=== PATIENT | male | born 1990 | race African-American/Black ===

== ENCOUNTER 2019-01-02 14:43 | Emergency (ER) | payer MEDICAID, SELFPAY ==
[2019-01-02 14:51] VITALS: BP 127/78; PULSE 77; RESP 12; TEMP 37.2; O2SAT 98
--- NOTE | 2019-01-02 14:53 | ED.GENADUL_ITS ---
Discharge Plan Discharge Details Chief Complaint: RashLesion Primary Care Provider: None,None ED Provider: Ginny Terry General Date/Time Provider Initiated Documentation: 01/02/19 14:46 . Stated Complaint: RashLesion JARRED: 5 Course Vital Signs Temperature 99.0 F 01/02/19 14:51 Pulse 77 01/02/19 14:51 Respiratory Rate 12 01/02/19 14:51 Blood Pressure 127/78 01/02/19 14:51 Pulse Oximetry 98 01/02/19 14:51 Temperature 99.0 F 01/02/19 14:51 Temperature Source Temporal Artery Scan 01/02/19 14:51 Pulse 77 01/02/19 14:51 Respiratory Rate 12 01/02/19 14:51 Blood Pressure 127/78 01/02/19 14:51 Blood Pressure Position Sitting 01/02/19 14:51 Pulse Oximetry 98 01/02/19 14:51 Oxygen Delivery Method Room Air 01/02/19 14:51 Oxygen Flow Rate 0 01/02/19 14:51 Pain Level 0 01/02/19 14:51
--- NOTE | 2019-01-02 15:50 | W.ED.GENAD ---
Discharge Plan Disposition Patient Disposition: HOME Condition: Good Discharge Details Chief Complaint: RashLesion Clinical Impression: Blister Primary Care Provider: None,None ED Provider: Johana Garcia Home Meds and New Rx's Prescriptions: No Action No Known Home Meds RF: 0 Discharge Instructions Instructions: Blister (ED) Additional Instructions: Keep area clean, dry, covered. Wear a Band-Aid when wearing your work shoes as it will likely continue to rub. Monitor for signs of infection including redness, warmth, drainage, increased pain, fever/chills. If you develop these or other new/worsening symptoms please seek care urgently once again. Otherwise, please follow-up with primary care if not improving over the next 2-week Medical Decision Making Patient presents today for evaluation of open area of skin. Findings and history most concerning for a blister. Advised that this is likely from his foot rubbing for extended periods of time his work shoes. He will cover with a Band-Aid to help prevent further irritation to this area. We did discuss changing his shoes. We discussed the signs symptoms of infection when to seek care urgently once again. All his questions and concerns were addressed and he is in agreement this plan. HPI General Mode of arrival: ambulatory. Date/Time Provider Initiated Documentation: 01/02/19 14:46. Limitations to Documentation: no limitations. Information obtained by: patient and family (accompanied by significant other). HPI Narrative: Patient is a 28-year-old male presenting today, accompanied by significant other, with chief complaint of open area to the medial aspect of the dorsal side of the left foot. He reports that he first noticed this 2 days ago. This was after a long shift at work where he is ambulating frequently. States that when he first noticed it, the area was very pale than superficial layer of skin layer sloughed off. Since that time, he has noted an open circular area of skin. States that when this rubs against his shoes he can note blood on his socks. Denies any fevers or chills. No known trauma. Denies any pain. No other rash or break in the skin noted Related Data Home Medications Medication Instructions Recorded Confirmed Unknown [No Known Home Meds] 01/02/19 01/02/19 Allergies Allergy/AdvReac Type Severity Reaction Status Date / Time No Known Allergies Allergy Unverified 01/02/19 14:54 General Stated Complaint: RashLesion JARRED: 5 Review of Systems Constitutional Reports as per HPI, Denies chills and Denies fever(s) Musculoskeletal Reports as per HPI Integumentary/Breasts Reports as per HPI Neurologic Reports as per HPI, Denies sensory deficit and Denies paresthesias [facility] Social History Smoking/Tobacco Use Status: Current every day Tobacco Type: cigarettes Alcohol Intake: current Alcohol Intake frequency: a few times a month Drug use: Daily Substance use type: former substance user Do you feel safe at home: Yes Do you feel safe in your relationship?: Yes Exam Const General: cooperative, healthy appearing, comfortable, no acute distress and well developed Nutritional Appearance: average body habitus and well nourished Orientation: alert and awake Resp Effort & Inspection: normal respiratory effort, able to speak in complete sentences and no respiratory distress Cardio Rate: regular rate Rhythm: regular rhythm Skin Wounds: wounds noted (Patient has a 8 mm in diameter open area of skin left dorsal foot) Neuro General: alert and awake Cognition: normal cognition Speech: speech normal Gait: normal gait Sensory Exam: no sensory deficits noted Extrem General: abnormal to inspection (Open area of skin as above, exam otherwise normal), full ROM, normal capillary refill, no joint enlargement, no pedal edema and normal gait Psych Appearance: grossly normal and well kempt Mental Status: mental status grossly normal Speech and Movement: speech and movement normal Course Vital Signs Temperature 37.2 C 01/02/19 14:51 Pulse 77 01/02/19 14:51 Respiratory Rate 12 01/02/19 14:51 Blood Pressure 127/78 01/02/19 14:51 Pulse Oximetry 98 01/02/19 14:51 Temperature 37.2 C 01/02/19 14:51 Temperature Source Temporal Artery Scan 01/02/19 14:51 Pulse 77 01/02/19 14:51 Respiratory Rate 12 01/02/19 14:51 Respiratory Effort Non-Labored 01/02/19 14:52 Blood Pressure 127/78 01/02/19 14:51 Blood Pressure Position Sitting 01/02/19 14:51 Pulse Oximetry 98 01/02/19 14:51 Oxygen Delivery Method Room Air 01/02/19 14:51 Oxygen Flow Rate 0 01/02/19 14:51 Pain Level 0 01/02/19 14:51
[2019-01-02 15:53] VITALS: BP 127/78; PULSE 77; RESP 12; O2SAT 98
--- NOTE | 2019-01-02 15:55 | ED.GENADUL_ITS ---
Discharge Plan Disposition Patient Disposition: HOME Condition: Good Discharge Details Chief Complaint: RashLesion Clinical Impression: Blister Primary Care Provider: None,None ED Provider: Johana Garcia Home Meds and New Rx's Prescriptions: No Action No Known Home Meds RF: 0 Discharge Instructions Instructions: Blister (ED) Additional Instructions: Keep area clean, dry, covered. Wear a Band-Aid when wearing your work shoes as it will likely continue to rub. Monitor for signs of infection including redness, warmth, drainage, increased pain, fever/chills. If you develop these or other new/worsening symptoms please seek care urgently once again. Otherwise, please follow-up with primary care if not improving over the next 2- week Medical Decision Making Patient presents today for evaluation of open area of skin. Findings and history most concerning for a blister. Advised that this is likely from his foot rubbing for extended periods of time his work shoes. He will cover with a Band-Aid to help prevent further irritation to this area. We did discuss changing his shoes. We discussed the signs symptoms of infection when to seek care urgently once again. All his questions and concerns were addressed and he is in agreement this plan. HPI General Mode of arrival: ambulatory . Date/Time Provider Initiated Documentation: 01/02/19 14:46 . Limitations to Documentation: no limitations . Information obtained by: patient and family (accompanied by significant other) . HPI Narrative: Patient is a 28-year-old male presenting today, accompanied by significant other, with chief complaint of open area to the medial aspect of the dorsal side of the left foot. He reports that he first noticed this 2 days ago. This was after a long shift at work where he is ambulating frequently. States that when he first noticed it, the area was very pale than superficial layer of skin layer sloughed off. Since that time, he has noted an open circular area of skin. States that when this rubs against his shoes he can note blood on his socks. Denies any fevers or chills. No known trauma. Denies any pain. No other rash or break in the skin noted Related Data Home Medications Medication Instructions Recorded Confirmed Unknown [No Known Home Meds] 01/02/19 01/02/19 Allergies Allergy/AdvReac Type Severity Reaction Status Date / Time No Known Allergies Allergy Unverified 01/02/19 14:54 General Stated Complaint: RashLesion JARRED: 5 Review of Systems Constitutional Reports as per HPI, Denies chills and Denies fever(s) Musculoskeletal Reports as per HPI Integumentary/Breasts Reports as per HPI Neurologic Reports as per HPI, Denies sensory deficit and Denies paresthesias [facility] Social History Smoking/Tobacco Use Status: Current every day Tobacco Type: cigarettes Alcohol Intake: current Alcohol Intake frequency: a few times a month Drug use: Daily Substance use type: former substance user Do you feel safe at home: Yes Do you feel safe in your relationship?: Yes Exam Const General: cooperative, healthy appearing, comfortable, no acute distress and well developed Nutritional Appearance: average body habitus and well nourished Orientation: alert and awake Resp Effort & Inspection: normal respiratory effort, able to speak in complete sentences and no respiratory distress Cardio Rate: regular rate Rhythm: regular rhythm Skin Wounds: wounds noted (Patient has a 8 mm in diameter open area of skin left dorsal foot) Neuro General: alert and awake Cognition: normal cognition Speech: speech normal Gait: normal gait Sensory Exam: no sensory deficits noted Extrem General: abnormal to inspection (Open area of skin as above, exam otherwise normal), full ROM, normal capillary refill, no joint enlargement, no pedal edema and normal gait Psych Appearance: grossly normal and well kempt Mental Status: mental status grossly normal Speech and Movement: speech and movement normal Course Vital Signs Temperature 37.2 C 01/02/19 14:51 Pulse 77 01/02/19 14:51 Respiratory Rate 12 01/02/19 14:51 Blood Pressure 127/78 01/02/19 14:51 Pulse Oximetry 98 01/02/19 14:51 Temperature 37.2 C 01/02/19 14:51 Temperature Source Temporal Artery Scan 01/02/19 14:51 Pulse 77 01/02/19 14:51 Respiratory Rate 12 01/02/19 14:51 Respiratory Effort Non-Labored 01/02/19 14:52 Blood Pressure 127/78 01/02/19 14:51 Blood Pressure Position Sitting 01/02/19 14:51 Pulse Oximetry 98 01/02/19 14:51 Oxygen Delivery Method Room Air 01/02/19 14:51 Oxygen Flow Rate 0 01/02/19 14:51 Pain Level 0 01/02/19 14:51
== END 2019-01-02 15:55 | disposition home or self-care (01) ==
PROVIDERS: Emergency Provider Physician Assistant
DX: S90.822A Blister (nonthermal), left foot, initial encounter (principal); X50.3XXA Overexertion from repetitive movements, initial encounter
CPT/HCPCS: 99281

== ENCOUNTER 2020-10-29 13:01 | Emergency (ER) | payer SELFPAY ==
[2020-10-29 13:11] VITALS: BP 131/81; PULSE 92; RESP 16; TEMP 37.3; O2SAT 99
--- NOTE | 2020-10-29 13:53 | ED.GENADUL_ITS ---
Discharge Plan Disposition Patient Disposition: HOME Condition: Stable Discharge Details Clinical Impression: Streptococcal sore throat Primary Care Provider: None,None ED Provider: Kia Álvarez Home Meds and New Rx's Prescriptions: New cephalexin 500 mg tablet 500 mg PO BID 9 Days Qty: 18 RF: 0 Discharge Instructions Instructions: Strep Throat (ED), Upper Respiratory Infection (ED) Additional Instructions: Follow up with primary care provider in 3-5 days. Return to ED sooner if any worsening or concerns. Increase oral fluids. Take antibiotic as directed twice daily for 10 days. Gargle with warm salt water up to 3 times daily. At this time your Covid test is pending. He will need to quarantine until negative test results and for alleviation of symptoms. Please take Tylenol or Ibuprofen with food every 4-6 hours as needed for pain and swelling. Strep swab positive. Stand Alone Forms: PENDING COVID-19 TESTING Discharge Data Discharge Date/Time-TO BE ENTERED AT DEPARTURE: 10/29/20 14:26 Medical Decision Making 30-year-old male presents the ER chief complaint sore throat, fever for the last 48 hours. He also reports back pain which is chronic. On initial exam he does have 3+ bilateral tonsils, erythematous area and exudate noted. Positive anterior cervical lymphadenopathy. He is speaking in full sentences with a clear voice, no problems handling his saliva. Denies any abdominal pain, nausea vomiting or diarrhea. Denies any problems urinating or burning with urination. At this time strep swab ordered is pending send out Covid swab obtained. Strep rapid swab positive. Patient given dexamethasone here in department and prescribed Keflex 5 mg twice a day. First dose given tonight. This text was generated using [employer] dictation system, please disregard any oddities of phrase or misspellings. HPI General Mode of arrival: ambulatory . Date/Time Provider Initiated Documentation: 10/29/20 13:38 . Limitations to Documentation: no limitations . Information obtained by: patient . HPI Narrative: 30-year-old male presents the ER chief complaint sore throat, fever for the last 48 hours. He also reports back pain which is chronic. On initial exam he does have 3+ bilateral tonsils, erythematous area and exudate noted. Positive anterior cervical lymphadenopathy. He is speaking in full sentences with a clear voice, no problems handling his saliva. Denies any abdominal pain, nausea vomiting or diarrhea. Denies any problems urinating or burning with urination. Related Data Home Medications Medication Instructions Recorded Confirmed cephalexin 500 mg PO BID 9 Days #18 tab 10/29/20 Previous Rx's Medication Instructions Recorded cephalexin 500 mg PO BID 9 Days #18 tab 10/29/20 Allergies Allergy/AdvReac Type Severity Reaction Status Date / Time No Known Allergies Allergy Unverified 10/29/20 13:17 General Stated Complaint: Fever JARRED: 3 Review of Systems Narrative: Constitutional: Negative for weight loss, alert and oriented, well groomed, normal body habitus, appears comfortable. HEENT: Denies trauma, headaches, blurry vision, nasal discharge, positive sore throat trouble swallowing.. Chest: Denies chest pain, palpitations, irregular rhythm, hypertension. Respiratory: Denies Shortness of breath, cough, hemoptysis. GI: Denies abdominal pain, nausea, vomiting, diarrhea, constipation. : Denies dysuria, hematuria, flank pain, rectal bleeding. Neuro: Denies dizziness, blurry vision, weakness, syncope, headache or facial numbness. Hematologic: Denies easy bruising, intolerance to heat or cold, hair loss. [facility] Social History Smoking/Tobacco Use Status: Current every day Tobacco Type: cigarettes Smoking risk assessment performed?: Yes Alcohol Intake: current Alcohol Intake frequency: a few times a month Drug use: Daily Substance use type: former substance user and marijuana Do you feel safe at home: Yes Do you feel safe in your relationship?: Yes Exam Narrative Exam Narrative: Constitutional: Alert and oriented x3. Appears stated age. Normal body habitus. Head: Normocephalic, no trauma. Eyes: Pupils PERRLA, Red reflex noted, EOM's intact. Eyelids symmetrical without lesions, discharge, or swelling. ENT: Bilateral TM's WNL, External ear normal to inspection, no mastoid TTP, swelling, or erythema, Nasal turbinates WNL, no nasal discharge. Normal dentition, Posterior pharynx erythemic, tonsils 2+ bilaterally, positive exudate noted bilaterally. Anterior cervical lymphadenopathy positive. Chest: RRR, Normal S1, S2, distal pulses intact. Resp: Lungs clear to auscultation bilaterally, no wheezes, rales, or rhonchi. Musculoskeletal: Normal gait, 5/5 strength to all four extremities. Skin: No suspicious rashes or lesions. Capillary refill less than 2 sec. Neurologic: Cranial nerves II-XII intact. Alert and oriented x 3. DTR's intact. Hematologic/Lymphatic: No ecchymosis, Course Vital Signs Vital signs: Vital Signs Temperature 37.3 C 10/29/20 13:11 Pulse 92 H 10/29/20 13:11 Respiratory Rate 16 10/29/20 13:11 Blood Pressure 131/81 10/29/20 13:11 Pulse Oximetry 99 10/29/20 13:11 Temperature 37.3 C 10/29/20 13:11 Temperature Source Skin 10/29/20 13:11 Pulse 92 H 10/29/20 13:11 Respiratory Rate 16 10/29/20 13:11 Respiratory Effort 10/29/20 13:18 Blood Pressure 131/81 10/29/20 13:11 Blood Pressure Position Sitting 10/29/20 13:11 Pulse Oximetry 99 10/29/20 13:11 Oxygen Delivery Method Room Air 10/29/20 13:11 Oxygen Flow Rate 0 10/29/20 13:11 Pain Level 8 10/29/20 13:11
[2020-10-29] MEDS: Cephalexin 500 MG CAP PO (14:22)
[2020-10-29] MEDS: Dexamethasone 10 MG/ML VIAL PO (14:22)
[2020-10-29] MEDS: Cephalexin 500 MG CAP, 4 CAPS/BTL PO (14:23)
[2020-10-31 15:41] LABS: COVID-19 RT-PCR UVMMC Result Negative (Negative)
== END 2020-10-29 14:26 | disposition home or self-care (01) ==
PROVIDERS: Emergency Provider Registered Nurse Emergency
DX: J02.0 Streptococcal pharyngitis (principal); M54.5 Low back pain; G89.29 Other chronic pain; Z20.822 Contact with and (suspected) exposure to COVID-19
CPT/HCPCS: 87880; 99283; U0003; J1100

== ENCOUNTER 2021-01-02 12:44 | Emergency (ER) | payer SELFPAY ==
--- NOTE | 2021-01-02 12:45 | RT.EKG_ITS ---
APPROVED REPORT Exam: Resting ECG Reason for Exam: palpitations Patient Location: E HR:78 bpm ECG Measurements Heart Rate 78 AXIS OR 180 P 66 QRSd 80 QRS 44 QT 339 T 24 QTc 388 Conclusion Sinus rhythm...normal P axis, V-rate 60- 99
[2021-01-02 12:49] VITALS: BP 113/76; PULSE 79; RESP 16; TEMP 36.8; O2SAT 100
--- NOTE | 2021-01-02 13:08 | ED.GENADUL_ITS ---
Discharge Plan Disposition Patient Disposition: HOME Condition: Improving Discharge Details Chief Complaint: Palpitatns Clinical Impression: Heart palpitations Primary Care Provider: None,None ED Provider: Norman Duran Discharge Instructions Instructions: Heart Palpitations (ED) Additional Instructions: Return for evaluation of Holter monitor as discussed with respiratory therapy. We will ask our care management team to arrange a outpatient follow-up for you to establish primary care. Home to rest today. Small, frequent sips of fluid so that you maintain good hydration. Return to the ER for any acute concerns. Medical Decision Making Otherwise healthy young man presents with 2 days of intermittent palpitations. Denies any recent illness. He is otherwise been well. Arrives to the ER with normal vital signs and a reassuring exam. Screening EKG, laboratories obtained, chest x-ray obtained. Patient's labs are reassuring. There is note of slight elevated white blood cell count of 11, hematocrit 41, platelets 338. Chemistries unremarkable, troponin normal. Chest x-ra no acute findings. Patient remains stable and improved. Given that he had 2 days of previous symptoms, do not feel repeat troponin is indicated. We will place him on a Holter monitor as an outpatient. We will ask child care supervisor to arrange a follow-up for him to establish primary care. He is stable and appropriate for discharge to home. HPI General Mode of arrival: ambulatory . Date/Time Provider Initiated Documentation: 01/02/21 12:55 . Limitations to Documentation: no limitations . Information obtained by: patient . History of Present Illness 30 year old M presents to the emergency department with the chief complaint of Intermittent palpitations for 2 days, described as mild, Quality is described as dull, and is localized to the chest. Patient reports no radiation. Patient started experiencing this hour(s) and it has been intermittent and now resolved. No relieving factors improve symptom(s), No exacerbating factors reported . Patient notes no other symptoms.; denies cough, fever/chills, shortness of breath and syncope. Patient did receive the following treatments prior to arrival, none Related Data Allergies Allergy/AdvReac Type Severity Reaction Status Date / Time No Known Allergies Allergy Unverified 01/02/21 12:54 General Stated Complaint: Palpitatns JARRED: 3 Review of Systems Narrative: No injury, no rash, no recent illness. No shortness of breath. 8 systems reviewed and otherwise negative. [facility] Social History Smoking/Tobacco Use Status: Current every day Tobacco Type: cigarettes Smoking risk assessment performed?: Yes Alcohol Intake: current Alcohol Intake frequency: a few times a month Drug use: Daily Substance use type: former substance user and marijuana Do you feel safe at home: Yes Do you feel safe in your relationship?: Yes Exam Narrative Exam Narrative: Always like that okay okay to me not better than doing it GEN: awake, alert, oriented 3. Pleasant, well groomed, interactive. HEAD: Normocephalic, atraumatic ENT: Mucous membranes moist, oropharynx unremarkable, External ear exam unremarkable EYES: PERRL, EOMI NECK: Full ROM, no CHARLENE, no menigismus CHEST/RESP: Nontender, clear to auscultation bilateral, no wheeze/rhonchi/rales CARDIOVASCULAR: RRR, no murmur, rub serene. 2+ Rad pulse bilateral ABDOMEN: Soft, nontender, no mass. +Bowel sounds EXT: Full ROM, no edema, no rash Neuro: Grossly normal neurologic exam, conversant, interactive. Psych: Speech fluent, thoughts congruent, affect normal length cruiser Course Vital Signs Vital signs: Vital Signs Temperature 36.8 C 01/02/21 12:49 Pulse 79 01/02/21 12:49 Respiratory Rate 16 01/02/21 12:49 Blood Pressure 113/76 01/02/21 12:49 Pulse Oximetry 100 01/02/21 12:49 Temperature 36.8 C 01/02/21 12:49 Temperature Source Skin 01/02/21 12:49 Pulse 79 01/02/21 12:49 Respiratory Rate 16 01/02/21 12:49 Respiratory Effort 01/02/21 12:55 Blood Pressure 113/76 01/02/21 12:49 Blood Pressure Position Sitting 01/02/21 12:49 Pulse Oximetry 100 01/02/21 12:49 Oxygen Delivery Method Room Air 01/02/21 12:49 Oxygen Flow Rate 0 01/02/21 12:49 Pain Level 0 01/02/21 12:57
[2021-01-02 13:19] LABS: Abs Immature Grans 0.04 10^3/uL (0.0-0.06); Absolute Basophil Count 0.08 10^3/uL (0.0-0.2); Absolute Eosinophil Count 0.04 10^3/uL (0.0-0.7); Absolute Lymphocyte Count 2.85 10^3/uL (1.2-3.4); Absolute Monocyte Count 0.54 10^3/uL (0.1-0.8); Absolute Neutrophil Count 8.28 10^3/uL (1.2-6.7); Basophils % 0.7; Eosinophils % 0.3; HCT 41.2 % (40.0-50.0); Immature Grans % 0.3; Lymphocytes % 24.1; MCHC 31.6 % (32.0-36.0); MCV 85.7 fL (80-95); MPV 9.5 fL (8.0-11.0); Monocytes % 4.6; Nucleated RBC 0 %; Platelet Count 338 10^3/uL (130-400); RBC 4.81 10^6/uL (4.36-5.78); RDW 12.1 % (11.8-14.1); RDW-SD 38.4 fL; WBC 11.83 10^3/uL (4.4-10.8)
--- NOTE | 2021-01-02 13:21 | DI.RAD_ITS ---
Exam(s) XR CHEST 2V PA LATERAL EXAM: XR CHEST 2V PA LATERAL CLINICAL HISTORY: Palpitations TECHNIQUE: 2D digital imaging was performed. COMPARISON: No exams were available for comparison FINDINGS: MEDIASTINUM: Normal. HEART: Normal. PULMONARY VASCULATURE: Normal. LUNGS: Clear. PLEURAL SPACE: No pleural effusion or pneumothorax. BONE:Within normal limits for the patient's age. OTHER FINDINGS:Normal. IMPRESSION: No acute pulmonary findings. DATA REPOSITORY: RADIATION DOSE DELIVERED:
[2021-01-02 13:36] LABS: ALT 33 U/L (16-63); AST 19 U/L (15-37); Albumin 4.2 g/dL (3.4-5.0); Alkaline Phosphatase 104 U/L (46-116); Anion Gap 5.7 mmol/L (3-11); BUN 12 mg/dL (7-18); Bilirubin, Total 0.8 mg/dL (0.2-1.0); CO2 29.3 mmol/L (21.0-32.0); CREATININE 1.2 mg/dL (0.70-1.30); Calcium 8.7 mg/dL (8.5-10.1); Chloride 102 mmol/L (98-107); Glucose 90 mg/dL (74-106); Potassium 4.3 mmol/L (3.5-5.1); Sodium 137 mmol/L (136-145); Total Protein 7.7 g/dL (6.4-8.2)
[2021-01-02 13:39] LABS: Troponin I < 0.05 ng/mL (<0.06)
[2021-01-02 13:55] VITALS: BP 129/85; PULSE 81; RESP 16; TEMP 36.8; O2SAT 98
[2021-01-02 14:49] VITALS: BP 132/79; PULSE 89; RESP 16; TEMP 36.9; O2SAT 98
--- NOTE | 2021-01-03 12:01 | CMPROGNOTE_ITS ---
- If Service Date Differs Date of service: 01/03/21 Time of Service: 12:01 Care Management Progress Note Amee is seen in the ED for palpitations. At the request of ED provider, CM coordinates a referral to Claudette Singh of [facility], on-call provider, to assist Amee in obtaining a follow up appointment and in establishing care with a PCP.
== END 2021-01-02 14:55 | disposition home or self-care (01) ==
PROVIDERS: Emergency Provider Emergency Medicine
DX: R00.2 Palpitations (principal)
CPT/HCPCS: 80053; 93005; 99283; 71046; 83735; 84484; 85025; 93010; 93225

== ENCOUNTER 2021-01-02 14:23 | Outpatient (RCR) | payer SELFPAY ==
--- NOTE | 2021-01-02 14:30 | HOLTER_ITS ---
APPROVED REPORT Conclusion This is a 24-hour monitor ordered for indication of: unknown. ???The patient was in normal sinus rhythm for the majority of the recording with an average heart rat e of 82 bpm. ???There were no episodes of ventricular tachycardia nor any episodes of supraventricular tachycardia . There was one total PAC/PVC. ???There were no episodes of atrial fibrillation, no pauses greater than 3 seconds and no evidence of high degree heart block. ???There were no patient triggered events.
== END 2021-01-23 23:59 | disposition home or self-care (01) ==
LOC: RT 14:23
PROVIDERS: Visit Provider Emergency Medicine
DX: R00.2 Palpitations (principal)
CPT/HCPCS: 93225; 93226

== ENCOUNTER 2021-05-17 15:49 | Emergency (ER) | payer SELFPAY ==
[2021-05-17 15:52] VITALS: BP 128/75; PULSE 78; RESP 16; TEMP 37.1; O2SAT 99
--- NOTE | 2021-05-17 16:12 | ED.GENADUL_ITS ---
Discharge Plan Disposition Patient Disposition: HOME Condition: Stable Discharge Details Clinical Impression: Urethritis Primary Care Provider: None,None ED Provider: Justin Jerez Home Meds and New Rx's Prescriptions: New metronidazole 500 mg tablet 500 mg PO BID Qty: 14 RF: 0 Discharge Instructions Additional Instructions: You are being treated for the same thing your partner reportedly tested positive for follow up with your primary care provider within a week and discuss hiv testing return to the emergency department if you feel more ill or have severe worsening pain Medical Decision Making 30 yo male who denies chronic medical problems comes in with complaints he has burning in his penis and was told by his partner they tested positive for trichomoniasis today. He denies any other symptoms, no testicle pain or swelling, no lesions, no abdominal pain or fevers. He has no cva tenderness or abdominal tenderness on exam. Given lack of lesions doubt syphylis. Will obtain test for gc/chlamydia. Will tx with flagyl and advised to f/u with pcp for possible hiv testing, return precautions given Differential Diagnosis Differential Diagnosis: trichomonis, gc/chlamydia HPI General Mode of arrival: ambulatory . Date/Time Provider Initiated Documentation: 05/17/21 15:50 . Limitations to Documentation: no limitations . Information obtained by: patient . History of Present Illness 30 year old M presents to the emergency department with the chief complaint of partner tested positive for trichomoniasis, Patient started experiencing this day(s) (1) and it has been constant. No relieving factors improve symptom(s), No exacerbating factors reported . Patient notes no other symptoms.. Patient did receive the following treatments prior to arrival, none Related Data Home Medications Medication Instructions Recorded Confirmed metronidazole 500 mg PO BID #14 tab 05/17/21 Previous Rx's Medication Instructions Recorded metronidazole 500 mg PO BID #14 tab 05/17/21 Allergies Allergy/AdvReac Type Severity Reaction Status Date / Time No Known Allergies Allergy Unverified 05/17/21 15:54 General Stated Complaint: Male Reproductive Problem JARRED: 4 Review of Systems All systems reviewed & are unremarkable except as noted in HPI and below Constitutional Constitutional: Denies chills, Denies fever(s) and Denies weakness Cardiovascular Cardiovascular: Denies chest pain and Denies dyspnea Respiratory Respiratory: Denies cough and Denies dyspnea Gastrointestinal Gastrointestinal: Denies abdominal pain, Denies nausea and Denies vomiting Musculoskeletal Musculoskeletal: Denies joint swelling Neurologic Neurologic: Denies weakness Psychiatric Psychiatric: Denies depression [facility] Social History Smoking/Tobacco Use Status: Current every day Tobacco Type: cigarettes Smoking risk assessment performed?: Yes Alcohol Intake: current Alcohol Intake frequency: a few times a month Drug use: Daily Substance use type: former substance user and marijuana Do you feel safe at home: Yes Do you feel safe in your relationship?: Yes Exam Const General: no acute distress Orientation: alert HENMT Head: normal to inspection Ears: external ears normal General nose exam: external nose normal Mouth: moist mucous membranes Eyes General: appearance normal, both eyes and all related structures Neck Neck: normal visual inspection Resp Effort & Inspection: normal respiratory effort and able to speak in complete sentences Cardio Rate: regular rate General: No CVA tenderness Male General Exam: No lesions Skin General skin exam: no rashes or lesions noted Neuro General: patient alert and patient oriented x3 Extrem General: normal to inspection Psych Mental Status: mental status grossly normal Course Vital Signs Vital signs: Vital Signs Temperature 37.1 C 05/17/21 15:52 Pulse 78 05/17/21 15:52 Respiratory Rate 16 05/17/21 15:52 Blood Pressure 128/75 05/17/21 15:52 Pulse Oximetry 99 05/17/21 15:52 Temperature 37.1 C 05/17/21 15:52 Temperature Source Temporal Artery Scan 05/17/21 15:52 Pulse 78 05/17/21 15:52 Respiratory Rate 16 05/17/21 15:52 Respiratory Effort Non-Labored 05/17/21 15:54 Blood Pressure 128/75 05/17/21 15:52 Blood Pressure Position Sitting 05/17/21 15:52 Pulse Oximetry 99 05/17/21 15:52 Oxygen Delivery Method Room Air 05/17/21 15:52 Oxygen Flow Rate 0 05/17/21 15:52 Pain Level 0 05/17/21 15:52 PAWSS Have you Been Recently Intoxicated or Drunk Within the Last 30 days?: Yes Have you Ever Experienced Previous Episodes of Alcohol Withdrawal?: No Have you ever Experienced Withdrawal Seizures?: No Have you ever Experienced Delirium Tremens(DT)s?: No Have you ever undergone Alcohol Rehabilitation Treatment (i.e, inpt ot outpatient treatment programs)?: No Have you ever Experienced Blackouts?: No Have you ever Combined Alcohol with other Downers within the last 90 days?: No Have you ever Combined Alcohol with any other Substance of Abuse during the last 90 days?: Yes Positive Blood Alcohol level on Presentation? [PCS.BAL]: No Evidence of Increased Autonomic Activity (i.e. HR>120, tremor, sweating, agitation, nausea)?: No Result: 3
[2021-05-20 15:22] LABS: Chlamydia Result Negative (Negative); GC Result Negative (Negative)
== END 2021-05-17 16:33 | disposition home or self-care (01) ==
PROVIDERS: Emergency Provider Emergency Medicine
DX: N34.2 Other urethritis (principal)
CPT/HCPCS: 87491; 87591; 99283

== ENCOUNTER 2021-09-24 18:46 | Emergency (ER) | payer MEDICAID, SELFPAY ==
[2021-09-24] VITALS (56 sets, daily range): BP systolic 103–140; BP diastolic 45–90; PULSE 83–108; RESP 5–30; TEMP 36.4; O2SAT 90–100
--- NOTE | 2021-09-24 18:52 | ED.GENADUL_ITS ---
Discharge Plan Disposition Patient Disposition: HOME Condition: Improving Discharge Details Clinical Impression: Accidental drug overdose, Substance abuse Primary Care Provider: None,None ED Provider: Kia Álvarez Home Meds and New Rx's Prescriptions: New naloxone [Narcan] 4 mg/actuation spray,non-aerosol 4 mg intranasal Q2-3M PRN (Reason: opioid overdose) Qty: 2 0RF Rx Instructions: spray 1 dose into ONE nostril; alternate nostrils w each dose until help arrives Discharge Instructions Instructions: Narcotic Safety (ED), Adult Overdose (ED) Additional Instructions: Please do not use illicit drugs. Tonight it appeared that you were overmedicated she is sedated. Please use the Narcan as prescribed if needed. Please discuss this with your friends and family who are with you about using this medication. You are placed on a care management list to establish PCP. Your glucose was high over 200 today. Please follow-up with this with the primary care doctor. Please stay with somebody who can keep an eye on you tonight. Return to the ER for any worsening shortness of breath, trouble breathing, altered mental status or any concerns. Follow up with primary care provider in 3-5 days. Return to ED sooner if any worsening or concerns. Increase oral fluids. Medical Decision Making 31-year-old male presents to the ER via EMS with chief complaint of unresponsiveness and altered mental status. Patient was found [place] a movie theater was arousable to verbal stimuli on scene, he does appear very sedated and under the influence upon initial exam. Per EMS he did desatted to the 80s on room air while falling asleep. I did witness that he does desat to approximately 80% on room air. He admits to taking 30 mg Percocet approximately 3 hours prior to going to the movie theater, he also admits to marijuana. He did have cocaine in his pocket but he denies taking that. He denies any alcohol. Patient falls easily asleep during conversation, mumbles words and oxygen is in the 80s on room air. Labs, urinalysis, urine drug screen ordered. Room air sat dropped to 80 on room air patient placed back on oxygen. Narcan 0.4 mg IV ordered. Respiratory rate drops down to 2-5-minute. 1944: Patient reevaluation after receiving 0.4 mg of Narcan IV, he is on his phone he does appear more alert and is requesting to know where his jacket is. CBC shows leukocytosis with a white blood cell count of 27,000, neutrophils are 23, sodium is low at 134, glucose elevated at 264, calcium 8.3 alk phos 118. Tylenol is less than 2within normal limits. Salicylate is 3.1 which is slightly elevated however nontoxic. Will repeat CBC to verify the white blood cell count, liter normal saline ordered and will continue to observe. 2007: head coach called for patient evaluation. 2031: Patient placed on room air. O2 sat is 96%. Imaging protocol: XR of the chest. Views: 2 views. COMPARISON: CR XR CHEST 2V PA LATERAL 01/02/2021 1:20 PM FINDINGS: Lungs: Unremarkable. No consolidation. Pleural spaces: Unremarkable. No pleural effusion. No pneumothorax. Heart/Mediastinum: Unremarkable. No cardiomegaly. Bones/joints: Unremarkable. IMPRESSION: No acute findings. Thank you for allowing us to participate in the care of your patient. Dictated and Authenticated by: Jerome Saenz DO 0: Patient has been on room air for the last 2 hours and has maintained saturation above 93% or greater. Imaging protocol: XR of the lumbosacral spine. Views: 4 or 5 views. COMPARISON: No relevant prior studies available. FINDINGS: Bones/joints: Normal. No acute fracture. Normal alignment. Soft tissues: Unremarkable. IMPRESSION: No acute findings. Patient has maintained room air oxygenation while here in the department. At this time I feel that patient is stable enough to be discharged home. Will prescribe him Narcan nasal spray x2 as needed. Patient placed on a care management list for PCP establishment. Patient was able to speak with the monomer recovery supervisor. Patient is calling for a ride home at this time. We will verify that patient is stable and it is safe to be discharged. Patient had an episode of emesis after the IV was already taken out. Zofran 4 mg ODT ordered. 2323: Ride here, appears to be sober and responsible. Patient discharged in hemodynamically staable condition. This text was generated using Progressionation system, please disregard any oddities of phrase or misspellings. Patient was given Narcan nasal spray to go and a prescription for Narcan as well. HPI General Mode of arrival: EMS . Date/Time Provider Initiated Documentation: 09/24/21 18:52 . Limitations to Documentation: altered mental status . Information obtained by: patient and EMS . HPI Narrative: 31-year-old male presents to the ER via EMS with chief complaint of unresponsiveness and altered mental status. Patient was found at a movie theat er was arousable to verbal stimuli on scene, he does appear very sedated and under the influence upon initial exam. Per EMS he did desatted to the 80s on room air while falling asleep. I did witness that he does desat to approximately 80% on room air. He admits to taking 30 mg Percocet approximately 3 hours prior to going to the movie theater, he also admits to marijuana. He did have cocaine in his pocket but he denies taking that. He denies any alcohol. Patient falls easily asleep during conversation, mumbles words and oxygen is in the 80s on room air. Related Data Home Medications Medication Instructions Recorded Confirmed naloxone 4 mg/actuation nasal 4 mg INTRANASAL Q2-3M PRN #2 ea 09/24/21 spray (Narcan) Previous Rx's Medication Instructions Recorded naloxone 4 mg/actuation nasal 4 mg INTRANASAL Q2-3M PRN #2 ea 09/24/21 spray (Narcan) Allergies Allergy/AdvReac Type Severity Reaction Status Date / Time No Known Allergies Allergy Unverified 05/17/21 15:54 General JARRED: 4 Review of Systems All systems reviewed & are unremarkable except as noted in HPI and below Constitutional Constitutional: Reports as per HPI and Reports daytime sleepiness PFSH All Active Problems (Updated 09/24/21 @ 22:45 by Kia Álvarez) Streptococcal sore throat (Acute) Heart palpitations (Acute) Urethritis (Acute) Accidental drug overdose (Acute) Substance abuse (Acute) Social History Smoking/Tobacco Use Status: Current every day Tobacco Type: cigarettes Smoking risk assessment performed?: Yes Alcohol Intake: former Drug use: Daily Substance use type: former substance user and marijuana Do you feel safe at home: Yes Do you feel safe in your relationship?: Yes Exam Narrative Exam Narrative: Constitutional: Somnolent, awakens to verbal stimulus, falls easily asleep during conversation, appears under the influence and sedated. Normal body habitus. Head: Normocephalic, no trauma. Eyes: Pupils PERRL, Red reflex noted, EOM's intact. Eyelids symmetrical without lesions, discharge, or swelling. Pupils are sluggish bilaterally. ENT: Bilateral TM's WNL, External ear normal to inspection, no mastoid TTP, swelling, or erythema, Nasal turbinates WNL, no nasal discharge. Normal dentition, Posterior pharynx WNL, no exudate. Chest: RRR, Normal S1, S2, distal pulses intact. Resp: Lungs clear to auscultation bilaterally, no wheezes, rales, or rhonchi. Abdomen: Soft, non-distended, Normoactive bowel sounds all 4 quads. Musculoskeletal: Unstable gait, assisted to the stretcher via EMS with assistance. Skin: No suspicious rashes or lesions. Capillary refill less than 2 sec. Neurologic: Cranial nerves II-XII intact. Alert and oriented x 2, altered mental status, slow to respond somnolent. Motor: No deficits noted. Sensory: Intact bilaterally all 4 extremities. Reflexes: DTR's intact bilaterally.. Hematologic/Lymphatic: No ecchymosis, no lymphadenopathy.
[2021-09-24] MEDS: Naloxone 0.4 MG/ML VIAL IVP (19:15)
[2021-09-24 19:25] LABS: Abs Immature Grans 0.16 10^3/uL (0.0-0.06); Absolute Eosinophil Count 0.08 10^3/uL (0.0-0.7); Basophils % 0.5; Eosinophils % 0.3; HCT 41.6 % (40.0-50.0); HGB 12.8 g/dL (13.5-17.5); Immature Grans % 0.6; MCHC 30.8 % (32.0-36.0); MCV 87.8 fL (80-95); MPV 9.4 fL (8.0-11.0); Monocytes % 4.8; Neutrophils % 83.8; Nucleated RBC 0 %; Platelet Count 401 10^3/uL (130-400); RBC 4.74 10^6/uL (4.36-5.78); RDW-SD 38.5 fL
[2021-09-24 19:30] LABS: Absolute Basophil Count 0.14 10^3/uL (0.0-0.2); Absolute Lymphocyte Count 2.75 10^3/uL (1.2-3.4); Absolute Neutrophil Count 23.06 10^3/uL (1.2-6.7)
[2021-09-24 19:32] LABS: Absolute Monocyte Count 1.32 10^3/uL (0.1-0.8); WBC 27.52 10^3/uL (4.4-10.8)
[2021-09-24 19:38] LABS: ALT 37 U/L (16-63); AST 21 U/L (15-37); Albumin 4.2 g/dL (3.4-5.0); Alkaline Phosphatase 118 U/L (46-116); Anion Gap 6.8 mmol/L (3-11); BUN 9 mg/dL (7-18); Bilirubin, Total 0.4 mg/dL (0.2-1.0); CO2 29.2 mmol/L (21.0-32.0); CREATININE 1.1 mg/dL (0.70-1.30); Calcium 8.3 mg/dL (8.5-10.1); Chloride 98 mmol/L (98-107); Glucose 264 mg/dL (74-106); Magnesium 2.1 mg/dL (1.8-2.4); Potassium 4.3 mmol/L (3.5-5.1); Sodium 134 mmol/L (136-145); Total Protein 8.1 g/dL (6.4-8.2)
[2021-09-24 19:43] LABS: ETHANOL BLOOD < 3.0 mg/dL (<10)
[2021-09-24 19:44] LABS: Salicylate 3.1 mg/dL (<2.8)
[2021-09-24] MEDS: Normal Saline 1,000 ML 1000 ML IV (19:46)
[2021-09-24 19:47] LABS: Acetaminophen < 2 ug/mL (10-30)
[2021-09-24 20:00] LABS: Bilirubin Negative (Negative); Blood Negative (Negative); Clarity Clear (Clear); Glucose >=1000 mg/dL (Negative); Ketones Negative (Negative); Leukocyte Esterase Negative (Negative); Nitrite Negative (Negative); Specific Gravity >= 1.030 (1.005-1.025); Urobilinogen 0.2 EU/dL (Up TO 0.2); pH 5.5 (5-8)
[2021-09-24 20:04] LABS: *AMPHETAMINES SCREEN URINE Negative (Negative); *BARBITURATES SCREEN URINE Negative (Negative); *BENZODIAZEPINES SCREEN URINE Negative (Negative); Cannabinoids THC Positive (Negative); Cocaine Screen,Urine Negative (Negative); METHADONE URINE SCREEN Negative (Negative); OPIATES URINE SCREEN Negative (Negative); Tricyclic Antidepressants Negative (Negative)
[2021-09-24 20:49] LABS: Diff Comment Diff Reviewed; RBC Morphology Normal
[2021-09-24 20:51] LABS: HCT 38.2 % (40.0-50.0); HGB 11.9 g/dL (13.5-17.5); MCH 27.2 pg (27.0-33.0); MCHC 31.2 % (32.0-36.0); MCV 87.4 fL (80-95); MPV 9.4 fL (8.0-11.0); Platelet Count 349 10^3/uL (130-400); RBC 4.37 10^6/uL (4.36-5.78); RDW 11.9 % (11.8-14.1); RDW-SD 38.8 fL; WBC 23.39 10^3/uL (4.4-10.8)
--- NOTE | 2021-09-24 21:15 | DI.RAD_ITS ---
Exam(s) XR CHEST 2V PA LATERAL EXAM: XR CHEST 2V PA LATERAL CLINICAL HISTORY: AMS, Leukocytosis TECHNIQUE: 2D digital imaging was performed. COMPARISON: CR XR CHEST 2V PA LATERAL from 01/02/2021 FINDINGS: The heart is not enlarged. The lungs are clear and well expanded. No pleural effusion seen. Mediastin al contours appear intact. IMPRESSION: Normal chest. RADIATION DOSE DELIVERED: Total DLP
--- NOTE | 2021-09-24 21:30 | DI.RAD_ITS ---
Exam(s) XR LUMBAR SPINE COMPLETE EXAM: XR LUMBAR SPINE COMPLETE CLINICAL HISTORY: Low back pain TECHNIQUE: COMPARISON: No exams were available for comparison FINDINGS: Six views were obtained. The intervertebral disc spaces are well maintained. Alignment appears with in normal limits. No evidence of spondylolysis or spondylolisthesis. No bony abnormality seen. IMPRESSION: Negative examination of the lumbosacral spine RADIATION DOSE DELIVERED: Total DLP
--- NOTE | 2021-09-24 22:38 | DI.VRAD_ITS ---
PROCEDURE INFORMATION: Exam: XR Chest Exam date and time: 09/24/2021 9:17 PM Age: 31 years old Clinical indication: Other: AMS, leukocytosis TECHNIQUE: Imaging protocol: XR of the chest. Views: 2 views. COMPARISON: CR XR CHEST 2V PA LATERAL 01/02/2021 1:20 PM FINDINGS: Lungs: Unremarkable. No consolidation. Pleural spaces: Unremarkable. No pleural effusion. No pneumothorax. Heart/Mediastinum: Unremarkable. No cardiomegaly. Bones/joints: Unremarkable. IMPRESSION: No acute findings. Dictated and Authenticated by: Jerome Saenz MD. Ordering:GAVINO Adam MD
--- NOTE | 2021-09-24 22:45 | DI.VRAD_ITS ---
PROCEDURE INFORMATION: Exam: XR Lumbosacral Spine Exam date and time: 09/24/2021 9:43 PM Age: 31 years old Clinical indication: Other: Low back pain TECHNIQUE: Imaging protocol: XR of the lumbosacral spine. Views: 4 or 5 views. COMPARISON: No relevant prior studies available. FINDINGS: Bones/joints: Normal. No acute fracture. Normal alignment. Soft tissues: Unremarkable. IMPRESSION: No acute findings. Dictated and Authenticated by: Jerome Saenz MD. Ordering:GAVINO Adam MD
[2021-09-24] MEDS: Ondansetron O.D.T. 4 MG TABEF PO (23:08)
--- NOTE | 2021-09-24 23:35 | NUR.NOTE ---
Nursing Note: Pt's friend Guera here for discharge and transport. Pt is talking in a raised voice during discharge, stating, no one give a fuck about me and I almost . Friend is sober, but upset. She assures me they will be safe to drive. I gave them naloxone x2 to take home and gave them instructions.
== END 2021-09-24 23:26 | disposition home or self-care (01) ==
LOC: ER 23:28
PROVIDERS: Emergency Provider Registered Nurse Emergency
DX: T39.1X1A Poisoning by 4-Aminophenol derivatives, accidental (unintentional), initial encounter (principal); R53.83 Other fatigue; R11.10 Vomiting, unspecified; M54.50 Low back pain, unspecified; D72.829 Elevated white blood cell count, unspecified; R41.82 Altered mental status, unspecified
CPT/HCPCS: 80053; 80307; 85027; 96361; 96374; 99284; 71046; 72110; 80320; 80329; 81003; 83735; 85025; J2310

== ENCOUNTER 2022-04-18 13:05 | Emergency (ER) | payer MEDICAID, SELFPAY ==
[2022-04-18 13:12] VITALS: BP 127/74; PULSE 92; RESP 18; TEMP 36.6; O2SAT 99
--- NOTE | 2022-04-18 13:34 | ED.GENADUL_ITS ---
Discharge Plan Disposition Patient Disposition: HOME Condition: Stable Discharge Details Clinical Impression: Exposure to STD, Itching of penis Primary Care Provider: None,None ED Provider: Minesh Rizo Discharge Instructions Instructions: Sexually Transmitted Diseases (ED), Trichomoniasis (ED) Additional Instructions: Please return to emergency department if you develop any worsening symptoms such as lesions on your penis penile discharge fevers difficulty urinating testicular pain or other abnormal symptoms. Please follow-up with your primary care physician for HIV testing. The antibiotic we gave you today as a one-time dose you do not need a prescription. We will call if your gonorrhea and/or chlamydia cultures are positive Medical Decision Making 31-year-old male presents with penile itching over the last day, endorses that his partner tested positive for trichomoniasis, endorses that she was negative for chlamydia gonorrhea. Patient would like STD testing as well as treatment for trichomoniasis. Patient is deferring examination. Given home care instructions and strict return precautions. Will treat empirically with Flagyl 2g single dose. We will also send gonorrhea chlamydia we will send a UA and will swab for HSV HPI General Date/Time Provider Initiated Documentation: 04/18/22 13:26 . HPI Narrative: 31-year-old male denies past medical history presents requesting treatment for penile itching, endorses that his female sexual partner tested positive for trichomoniasis, he says that her other tests were all negative including chlamydia and gonorrhea. Patient denies penile lesions or discharge Related Data Allergies Allergy/AdvReac Type Severity Reaction Status Date / Time No Known Allergies Allergy Unverified 04/18/22 13:15 General Stated Complaint: Male Reproductive Problem JARRED: 4 Review of Systems Narrative: Review of Systems Constitutional: negative Eyes: negative ENT: negative Cardiovascular: negative Respiratory: negative Gastrointestinal: negative : Female itching Musculoskeletal: negative Skin: negative Neurologic: negative Psych: negative PFSH All Active Problems (Updated 04/18/22 @ 13:41 by Minesh Rizo MD) Streptococcal sore throat (Acute) Heart palpitations (Acute) Urethritis (Acute) Exposure to STD (Acute) Itching of penis (Acute) Social History Smoking/Tobacco Use Status: Current every day Tobacco Type: cigarettes Smoking risk assessment performed?: Yes Alcohol Intake: former Drug use: Daily Substance use type: former substance user and marijuana Do you feel safe at home: Yes Do you feel safe in your relationship?: Yes Exam Narrative Exam Narrative: Physical Examination General: alert, awake, cooperative, resting comfortably, no acute distress HEENT: normocephalic, atraumatic; PERRL, EOM intact, conjunctiva normal; no nasal discharge; moist mucous membranes, oral and pharyngeal mucosa normal, tolerating secretions Neck: supple, trachea midline; full ROM Chest: normal to inspection Respiratory: normal respiratory effort, speaking in full sentences, clear to auscultation, no wheezing, rales or rhonchi Cardiac: regular rate, regular rhythm, S1S2 intact, no murmurs rubs or gallops GI: abdomen soft, non-tender, non-distended; no palpable mass or hepatosplenomegaly Skin: no lesions, rashes or trauma appreciated Neuro: AAOx3, normal speech, moving all extremities Psych: Appropriate mood and affect Course Vital Signs Vital signs: Vital Signs Temperature 36.6 C 04/18/22 13:12 Pulse 92 H 04/18/22 13:12 Respiratory Rate 18 04/18/22 13:12 Blood Pressure 127/74 04/18/22 13:12 Pulse Oximetry 99 04/18/22 13:12 Temperature 36.6 C 04/18/22 13:12 Temperature Source Temporal Artery Scan 04/18/22 13:12 Pulse 92 H 04/18/22 13:12 Respiratory Rate 18 04/18/22 13:12 Respiratory Effort Non-Labored 04/18/22 13:16 Blood Pressure 127/74 04/18/22 13:12 Blood Pressure Position Sitting 04/18/22 13:12 Pulse Oximetry 99 04/18/22 13:12 Oxygen Delivery Method Room Air 04/18/22 13:12 Oxygen Flow Rate 0 04/18/22 13:12
[2022-04-18] MEDS: metroNIDAZOLE 500 MG TAB 2000 MG PO (13:53)
[2022-04-18 13:58] LABS: Bilirubin Negative (Negative); Blood Negative (Negative); Clarity Clear (Clear); Glucose Negative (Negative); Ketones Trace mg/dL (Negative); Leukocyte Esterase Negative (Negative); Nitrite Negative (Negative); Specific Gravity >= 1.030 (1.005-1.025); Urobilinogen 0.2 EU/dL (Up TO 0.2); pH 5.5 (5-8)
[2022-04-19 14:30] LABS: Chlamydia Result Negative (Negative); GC Result Negative (Negative)
== END 2022-04-18 13:52 | disposition home or self-care (01) ==
PROVIDERS: Emergency Provider Emergency Medicine
DX: N48.89 Other specified disorders of penis (principal); A59.8 Trichomoniasis of other sites; Z20.2 Contact with and (suspected) exposure to infections with a predominantly sexual mode of transmission; F17.210 Nicotine dependence, cigarettes, uncomplicated
CPT/HCPCS: 87389; 87491; 87591; 99283; 81003; 99284

== ENCOUNTER 2024-04-22 18:28 | Emergency (ER) | payer MEDICAID, SELFPAY ==
--- NOTE | 2024-04-22 18:45 | DI.RAD_ITS ---
Exam(s) XR HAND RT COMPLETE EXAM: XR HAND RT COMPLETE CLINICAL HISTORY: right hand pain. TECHNIQUE: 2D digital imaging was performed. COMPARISON: No exams were available for comparison FINDINGS: 3 views No evidence of acute fracture or dislocation or abnormal soft tissue densities. No radiopaque foreig n bodies. Bone density normal. No osseous lesions nor erosions. IMPRESSION: No significant osseous findings in the right hand. DATA REPOSITORY: RADIATION DOSE DELIVERED:
--- NOTE | 2024-04-22 18:45 | DI.RAD_ITS ---
Exam(s) XR WRIST RT COMPLETE EXAM: XR WRIST RT COMPLETE CLINICAL HISTORY: right wrist pain. TECHNIQUE: 2D digital imaging was performed. COMPARISON: No exams were available for comparison FINDINGS: 3 views No evidence of fracture nor dislocation nor significant ulnar variance. Bone density normal. Scapho id and scapholunate distance are normal. There is a benign-appearing eccentric bone lesion in the di stal medial radius which is probably a fibrous cortical defect. IMPRESSION: No acute osseous findings in the wrist. DATA REPOSITORY: RADIATION DOSE DELIVERED:
[2024-04-22 18:49] VITALS: BP 153/88; PULSE 97; RESP 14; TEMP 35.8; O2SAT 100
[2024-04-22] MEDS: Acetaminophen 500 MG TAB 1000 MG PO (18:54)
--- OUTSIDE RECORDS SUMMARY | 2024-04-22 19:04 | XMS_ITS | Encounter Summary ---
Author Organization [facility] Address [address] [place] [address] Care Team Providers Care Hand Spring Repairer Name Role Phone Unavailable Primary Care Provider Unavailabl e Encounter Details Date Type Department Care Team (Late st Contact Info) Description 04/18/2022 Lab Requisition [facility] Pathology & Laboratory Medicine - [facility] [address] [place] [address] Outr Resulting Lab, Provider Social History Tobacco Use Types Packs/Day Years Used Date Smoking Tobacco: Never Assessed Interpersonal Safety Answer Date Record ed Physically Hurt Never 10/30/2020 Verbally Threaten Not on file 10/30/2020 Sex and Gender Information Value Date Recorded Sex Assigned at Not on file Gender Identity Not on file Sexual Orientation Not on file documented as of this encounter Plan of Treatment Not on file documented as of this encounter Procedures Procedure Name Priority Date/Time Associated Diagnosis Comments CHLAMYDIA/N. GONORRHOEAE AMPLIFIED NUCLEIC ACID Routine 04/18/2022 13:38 EDT documented in this encounter Results * CHLAMYDIA/N. GONORRHOEAE AMPLIFIED RNA (04/18/2022 13:38 EDT) Neisseria gonorrhoeae Result Negative Negative 04/19/2022 14:25 EDT [facility] Chlamydia trachomatis Result Negative Negative 04/19/2022 14:25 EDT [facility] Urine URINE / Unknown 04/18/2022 1 3:38 EDT 04/18/2022 22:47 EDT Provider Outr Resulting Lab MICROBIOLOGY - GENERAL ORDERABLES [facility] [address] [place] [address] documented in this encounter Visit Diagnoses Not on filedocumented in this encounter
--- OUTSIDE RECORDS SUMMARY | 2024-04-22 19:04 | XMS_ITS | Clinical Summary ---
Author Organization [facility] Address [address] [place] [address] Care Team Providers Care Field Observer Name Role Phone Unavailable Primary Care Provider Unavailabl e Social History Tobacco Use Types Packs/Day Years Used Date Smoking Tobacco: Never Assessed Interpersonal Safety Answer Date Record ed Physically Hurt Never 10/30/2020 Verbally Threaten Not on file 10/30/2020 Sex and Gender Information Value Date Recorded Sex Assigned at Not on file Gender Identity Not on file Sexual Orientation Not on file Plan of Treatment Health Maintenance Due Date Last Done Comments Hepatitis C Screen 1992 Hepatitis B Vaccine (1 of 3 - 19+ 3-dose series) 05/22 COVID-19 Vaccine (2022- season) 2023
--- OUTSIDE RECORDS SUMMARY | 2024-04-22 19:04 | XMS_ITS | Encounter Summary ---
Author Organization [facility] Address [address] [place] [address] Care Team Providers Care Waterworks Operator Name Role Phone Unavailable Primary Care Provider Unavailabl e Encounter Details Date Type Department Care Team (Late st Contact Info) Description 10/29/2020 Lab Requisition [facility] Pathology & Laboratory Medicine - [facility] [address] [place] [address] Outr Resulting Lab, Provider Social History Tobacco [...] Procedure Name Priority Date/Time Associated Diagnosis Comments COVID-19 TESTING Routine 10/29/2020 13:5 0 EDT documented in this encounter Results * COVID-19 TESTING (10/29/2020 13:50 EDT) COVID-19 rt-PCR Result Negative Negative 10/31/2020 8:37 EDT [facility] Performing Lab [facility] Lab 10/31/2020 8:37 EDT [facility] Swab 10/29/2020 13:5 0 EDT 10/29/2020 20:14 EDT Provider Outr Resulting Lab MICROBIOLOGY - GENERAL ORDERABLES [facility] [address] [place] [address] documented in this encounter Visit Diagnoses Not on filedocumented in this encounter
--- OUTSIDE RECORDS SUMMARY | 2024-04-22 19:04 | XMS_ITS | Referral Summary ---
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
--- OUTSIDE RECORDS SUMMARY | 2024-04-22 19:04 | XMS_ITS | Encounter Summary ---
Author Organization [facility] Address [address] [place] [address] Care Team Providers Care Hospital Pharmacist Name Role Phone Unavailable Primary Care Provider Unavailabl e Encounter Details Date Type Department Care Team (Late st Contact Info) Description 05/18/2021 Lab Requisition [facility] Path[facility] [address] [place] [address] Outr Resulting Lab, Provider Social History Tobacco [...] Comments CHLAMYDIA/N. GONORRHOEAE AMPLIFIED NUCLEIC ACID Routine 05/17/2021 16:00 EDT documented in this encounter Results * CHLAMYDIA/N. GONORRHOEAE AMPLIFIED RNA (05/17/2021 16:00 EDT) Neisseria gonorrhoeae Result Negative Negative 05/20/2021 15:18 EDT [facility] Chlamydia trachomatis Result Negative Negative 05/20/2021 15:18 EDT [facility] Urine URINE / Unknown 05/17/2021 1 6:00 EDT 05/19/2021 21:53 EDT Provider Outr Resulting Lab MICROBIOLOGY - GENERAL ORDERABLES [facility] [address] [place] [address] documented in this encounter Visit Diagnoses Not on filedocumented in this encounter
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
== END 2024-04-22 19:25 | disposition home or self-care (01) ==
PROVIDERS: Emergency Provider Emergency Medicine
DX: M25.531 Pain in right wrist (principal); F17.210 Nicotine dependence, cigarettes, uncomplicated
CPT/HCPCS: 99283; 73110; 73130

== ENCOUNTER 2024-06-04 22:37 | Emergency (ER) | payer MEDICAID, SELFPAY ==
[2024-06-04] VITALS (17 sets, daily range): BP systolic 99–156; BP diastolic 66–95; PULSE 55–82; RESP 10–23; TEMP 36.3; O2SAT 98–100
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
[2024-06-04] MEDS: Naloxone 0.4 MG/ML VIAL IVP (22:48)
[2024-06-04 22:50] LABS: Abs Immature Grans 0.04 10^3/uL (0.0-0.06); Absolute Basophil Count 0.07 10^3/uL (0.0-0.2); Absolute Eosinophil Count 0.16 10^3/uL (0.0-0.7); Absolute Lymphocyte Count 4.35 10^3/uL (1.2-3.4); Absolute Monocyte Count 0.53 10^3/uL (0.1-0.8); Absolute Neutrophil Count 5.09 10^3/uL (1.2-6.7); Basophils % 0.7 %; Eosinophils % 1.6 %; HCT 35.3 % (40.0-50.0); HGB 11.5 g/dL (13.5-17.5); Immature Grans % 0.4 %; Lymphocytes % 42.5 %; MCH 27.8 pg (27.0-33.0); MCHC 32.6 % (32.0-36.0); MCV 86 fL (80-95); MPV 9.4 fL (8.0-11.0); Monocytes % 5.2 %; Neutrophils % 49.6 %; Platelet Count 280 10^3/uL (130-400); RBC 4.13 10^6/uL (4.36-5.78); RDW 11.9 % (11.8-14.1); RDW-SD 36.8 fL; WBC 10.24 10^3/uL (4.4-10.8)
[2024-06-04 23:06] LABS: ALT 33 U/L (16-63); AST 17 U/L (15-37); Albumin 3.7 g/dL (3.4-5.0); Alkaline Phosphatase 104 U/L (46-116); Anion Gap 8.8 mmol/L (3-11); BUN 10 mg/dL (7-18); Bilirubin, Total 0.38 mg/dL (0.2-1.0); CO2 29.2 mmol/L (21.0-32.0); Calcium 8.8 mg/dL (8.5-10.1); Chloride 103 mmol/L (98-107); Estimated GFR 102.55 (mL/min/1.73m2); Glucose 111 mg/dL (74-106); Potassium 3.8 mmol/L (3.5-5.1); Sodium 141 mmol/L (136-145)
[2024-06-04 23:11] LABS: ETHANOL BLOOD < 3.0 mg/dL (<10)
[2024-06-04] MEDS: Omnipaque 350 MG/ML 100 ML BTL IJ (23:28)
[2024-06-04] MEDS: Normal Saline - Diluent 50 ML VIAL IJ (23:29)
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
[2024-06-05] VITALS (9 sets, daily range): BP systolic 139–145; BP diastolic 83–96; PULSE 61–88; RESP 11–22; TEMP 36.3; O2SAT 72–100
[2024-06-05 00:20] LABS: Bilirubin Negative (Negative); Blood Negative (Negative); Clarity Clear (Clear); Glucose Negative (Negative); Ketones Negative (Negative); Leukocyte Esterase Negative (Negative); Nitrite Negative (Negative); Urobilinogen 0.2 mg/dL (Up to 0.2); pH 6.5 (5-8)
[2024-06-05 00:30] LABS: *AMPHETAMINES SCREEN URINE Negative (Negative); *BARBITURATES SCREEN URINE Negative (Negative); *BENZODIAZEPINES SCREEN URINE Positive (Negative); Cannabinoids THC Positive (Negative); Cocaine Screen,Urine Positive (Negative); METHADONE URINE SCREEN Negative (Negative); OPIATES URINE SCREEN Negative (Negative)
[2024-06-05 00:31] LABS: Tricyclic Antidepressants Negative (Negative)
== END 2024-06-05 00:49 ==
PROVIDERS: Emergency Provider Emergency Medicine
DX: F19.10 Other psychoactive substance abuse, uncomplicated (principal); R41.82 Altered mental status, unspecified; V49.49XA Driver injured in collision with other motor vehicles in traffic accident, initial encounter
CPT/HCPCS: 36415; 74177; 80053; 80307; 96372; 99285; 70450; 71260; 72125; 80320; 81003; 85025; 99284; J2310; J3490